=== PATIENT | female | born 1930 | race American Indian/Alaskan Native ===

== ENCOUNTER 2016-06-02 12:59 | Outpatient (CLI) | payer MEDICARE ==
[2016-06-02 13:29] LABS: Bilirubin,Urine NEG (Negative); Blood,Urine NEG (Negative); Ketones,Urine NEG (Negative); Leukocyte Esterase,Urine MOD (Negative); Mucus,Urine FEW /HPF; Nitrite,Urine NEG (Negative); Protein,Urine <15 mg/dL mg/dL (Negative); Urobilinogen,Urine < 2.0 mg/dL (<2.0)
[2016-06-02 13:55] LABS: BUN/Creatinine Ratio 17.27; Calcium 9.3 mg/dL (8.4-10.2); Chloride 102.2 mmol/L (98-107); Phosphorous 3.1 mg/dL (2.5-4.5); Potassium 4.3 mmol/L (3.6-5.0)
[2016-06-02 14:34] LABS: Eosinophils % (Auto) 3.4 % (0.0-4.3); Hematocrit 34.8 % (30.3-42.9); Hemoglobin 11.4 gm/dl (10.1-14.3); Mean Corpuscular HGB Conc 33 % (30-34); Mean Corpuscular Hemoglobin 29 pg (28-32); Mean Corpuscular Volume 88 fl (79-97); Platelet Count 168 K/mm3 (140-440); Red Blood Count 3.97 M/mm3 (3.65-5.03); White Blood Count 4.6 K/mm3 (4.5-11.0)
== END 2016-06-02 13:00 | disposition home or self-care (01) ==
LOC: LAB 12:59
PROVIDERS: ATTEND Internal Medicine Nephrology
DX: I12.9 Hypertensive chronic kidney disease with stage 1 through stage 4 chronic kidney disease, or unspecified chronic kidney disease (principal); N18.3 Chronic kidney disease, stage 3 (moderate)
CPT/HCPCS: 36415; 80048; 81001; 82570; 84100; 84156; 85025

== ENCOUNTER 2016-07-03 14:18 | Outpatient (CLI) | payer MEDICARE ==
--- NOTE | 2016-07-03 16:11 | Mammography Report ---
BILATERAL DIGITAL SCREENING MAMMOGRAM with CAD: 07/03/16 14:18:00 CLINICAL: Routine screening. COMPARISON: 05/13/14 FINDINGS: There are bilateral scattered areas of fibroglandular density.No mass, architectural distortion or suspicious calcifications. IMPRESSION: No mammographic evidence of malignancy. BI-RADS CATEGORY: 1 -- Negative RECOMMENDATION: Routine mammographic screening in one year. COMMENT: Patient follow-up letters are generated by our [employer] application.
== END 2016-07-03 14:19 | disposition home or self-care (01) ==
LOC: MAMMO 14:18
PROVIDERS: ATTEND Internal Medicine
DX: Z12.31 Encounter for screening mammogram for malignant neoplasm of breast (principal)
CPT/HCPCS: 77067; G0202

== ENCOUNTER 2017-02-12 12:33 | Emergency (ER) | payer MEDICARE ==
[2017-02-12 13:02] VITALS: BP 140/52
== END 2017-02-13 23:29 | disposition left against medical advice (07) ==
LOC: ED 12:33
DX: M79.671 Pain in right foot (principal); Z53.21 Procedure and treatment not carried out due to patient leaving prior to being seen by health care provider

== ENCOUNTER 2017-05-08 10:47 | Outpatient (CLI) | payer MEDICARE ==
[2017-05-08 11:18] LABS: Basophils % (Auto) 0.8 % (0.0-1.8); Eosinophils % (Auto) 2.3 % (0.0-4.3); Hematocrit 34.3 % (30.3-42.9); Hemoglobin 11.2 gm/dl (10.1-14.3); Mean Corpuscular HGB Conc 33 % (30-34); Mean Corpuscular Hemoglobin 29 pg (28-32); Mean Corpuscular Volume 90 fl (79-97); Platelet Count 121 K/mm3 (140-440); Red Blood Count 3.81 M/mm3 (3.65-5.03); Red Cell Distribution Width 15.1 % (13.2-15.2); White Blood Count 2.7 K/mm3 (4.5-11.0)
[2017-05-08 11:43] LABS: Calcium 9.6 mg/dL (8.4-10.2); Chloride 107.9 mmol/L (98-107); Potassium 4.1 mmol/L (3.6-5.0); Uric Acid 5.7 mg/dL (3.5-7.6)
[2017-05-08 11:51] LABS: Bacteria,Urine 1+ /HPF (Negative); Bilirubin,Urine NEG (Negative); Blood,Urine NEG (Negative); Ketones,Urine NEG (Negative); Leukocyte Esterase,Urine MOD (Negative); Mucus,Urine FEW /HPF; Nitrite,Urine NEG (Negative); Protein,Urine <15 mg/dL mg/dL (Negative)
== END 2017-05-08 10:48 | disposition home or self-care (01) ==
LOC: LAB 10:47
PROVIDERS: ATTEND Internal Medicine Nephrology
DX: I12.9 Hypertensive chronic kidney disease with stage 1 through stage 4 chronic kidney disease, or unspecified chronic kidney disease (principal); N18.3 Chronic kidney disease, stage 3 (moderate); D63.1 Anemia in chronic kidney disease; E78.5 Hyperlipidemia, unspecified; K21.9 Gastro-esophageal reflux disease without esophagitis; E79.0 Hyperuricemia without signs of inflammatory arthritis and tophaceous disease; R82.90 Unspecified abnormal findings in urine
CPT/HCPCS: 36415; 80048; 81001; 82570; 84156; 84550; 85025

== ENCOUNTER 2017-10-17 16:11 | Outpatient (CLI) | payer MEDICARE ==
--- NOTE | 2017-10-17 19:14 | XRay Report ---
FINAL REPORT EXAM: XR KNEE 1-2V RT HISTORY: PAIN IN RIGHT KNEE TECHNIQUE: AP and lateral views of the right knee PRIORS: None. FINDINGS: Intramedullary errol and screws present in the distal femur through a remote posttraumatic deformity involving the distal femoral shaft. No acute fracture or dislocation is seen. The soft tissues are unremarkable with no evidence for suprapatellar joint effusion. The bony mineralization is osteopenic. There is narrowing of the lateral and patellofemoral joints. 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 IMPRESSION: 1. no acute abnormality of the right knee. Postsurgical findings related to remote trauma in the distal femoral shaft. 2. Lateral patellofemoral joint space narrowing 3. 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
== END 2017-10-17 16:12 | disposition home or self-care (01) ==
LOC: XRAY 16:11
PROVIDERS: ATTEND Orthopaedic Surgery
DX: M11.261 Other chondrocalcinosis, right knee (principal); I12.9 Hypertensive chronic kidney disease with stage 1 through stage 4 chronic kidney disease, or unspecified chronic kidney disease; N18.9 Chronic kidney disease, unspecified; M81.0 Age-related osteoporosis without current pathological fracture; Z96.7 Presence of other bone and tendon implants; D64.9 Anemia, unspecified

== ENCOUNTER 2017-11-09 13:34 | Outpatient (CLI) | payer MEDICARE ==
[2017-11-09 14:00] LABS: Bilirubin,Urine NEG (Negative); Color,Urine Yellow (Yellow)
[2017-11-09 14:00] LABS: Basophils % (Auto) 0.7 % (0.0-1.8); Eosinophils # (Auto) 0.1 K/mm3 (0.0-0.4); Hematocrit 33.9 % (30.3-42.9); Lymphocytes # (Auto) 0.8 K/mm3 (1.2-5.4); Lymphocytes % (Auto) 22.7 % (13.4-35.0); Mean Corpuscular HGB Conc 33 % (30-34); Mean Corpuscular Hemoglobin 29 pg (28-32); Mean Corpuscular Volume 89 fl (79-97); Monocytes # (Auto) 0.3 K/mm3 (0.0-0.8); Monocytes % (Auto) 8.6 % (0.0-7.3); Platelet Count 132 K/mm3 (140-440); Red Blood Count 3.81 M/mm3 (3.65-5.03); Red Cell Distribution Width 14.6 % (13.2-15.2)
[2017-11-09 14:01] LABS: Blood,Urine SM (Negative); Mucus,Urine FEW /HPF; Protein,Urine <15 mg/dL mg/dL (Negative); Urobilinogen,Urine < 2.0 mg/dL (<2.0)
[2017-11-09 14:11] LABS: BUN/Creatinine Ratio 17; Blood Urea Nitrogen 17 mg/dL (7-17); Calcium 9.9 mg/dL (8.4-10.2); Hemolysis Index 46; Uric Acid 4.9 mg/dL (3.5-7.6)
[2017-11-09 14:24] LABS: Creatinine,Urine 56.3 mg/dL (0.1-20.0); Protein/Creatinine Ratio,Urine 0.23
== END 2017-11-09 13:35 | disposition home or self-care (01) ==
LOC: LAB 13:34
PROVIDERS: ATTEND Internal Medicine Nephrology
DX: I12.9 Hypertensive chronic kidney disease with stage 1 through stage 4 chronic kidney disease, or unspecified chronic kidney disease (principal); E11.22 Type 2 diabetes mellitus with diabetic chronic kidney disease; N18.3 Chronic kidney disease, stage 3 (moderate); E78.5 Hyperlipidemia, unspecified; D63.1 Anemia in chronic kidney disease; N25.81 Secondary hyperparathyroidism of renal origin; K21.9 Gastro-esophageal reflux disease without esophagitis; M10.9 Gout, unspecified; M81.0 Age-related osteoporosis without current pathological fracture; E78.00 Pure hypercholesterolemia, unspecified; Z90.710 Acquired absence of both cervix and uterus
CPT/HCPCS: 36415; 80048; 81001; 82570; 84100; 84156; 84550; 85025

== ENCOUNTER 2019-02-18 12:08 | Outpatient (CLI) | payer MEDICARE ==
[2019-02-18 12:45] LABS: Hematocrit 36.7 % (30.3-42.9); Mean Corpuscular HGB Conc 33 % (30-34); Mean Corpuscular Volume 91 fl (79-97); Platelet Count 133 K/mm3 (140-440); Red Blood Count 4.05 M/mm3 (3.65-5.03); Red Cell Distribution Width 15.6 % (13.2-15.2)
[2019-02-18 12:51] LABS: Bacteria,Urine 1+ /HPF (Negative); Bilirubin,Urine NEG (Negative); Blood,Urine NEG (Negative); Color,Urine Yellow (Yellow); Mucus,Urine FEW /HPF; Protein,Urine <15 mg/dL mg/dL (Negative); Urobilinogen,Urine < 2.0 mg/dL (<2.0)
[2019-02-18 13:02] LABS: Creatinine,Urine 81.7 mg/dL (0.1-20.0); Protein/Creatinine Ratio,Urine 0.21
[2019-02-18 13:06] LABS: Calcium 9.6 mg/dL (8.4-10.2)
== END 2019-02-18 12:09 | disposition home or self-care (01) ==
LOC: LAB 12:08
PROVIDERS: ATTEND Internal Medicine Nephrology
DX: I12.9 Hypertensive chronic kidney disease with stage 1 through stage 4 chronic kidney disease, or unspecified chronic kidney disease (principal); N18.3 Chronic kidney disease, stage 3 (moderate); E78.00 Pure hypercholesterolemia, unspecified; M81.0 Age-related osteoporosis without current pathological fracture; Z86.2 Personal history of diseases of the blood and blood-forming organs and certain disorders involving the immune mechanism; Z90.710 Acquired absence of both cervix and uterus
CPT/HCPCS: 36415; 80048; 81001; 82570; 84156; 85027

== ENCOUNTER 2019-03-11 09:33 | Outpatient (CLI) | payer MEDICARE ==
--- NOTE | 2019-03-11 12:08 | Magnetic Resonance Report ---
MRI LUMBAR SPINE 03/11/2019 INDICATION / CLINICAL INFORMATION: M54.16) RIGHT LUMBAR RADICULITIS. COMPARISON: 07/15/2010 FINDINGS: GENERAL OBSERVATIONS: Unenhanced MR images of the lumbar spine were obtained. Degenerative disc and f acet changes are present at all levels, also slightly progressed when compared to the prior exam from 2010. [id number] ANALYSIS: L5-S1: There is a grade 1 anterolisthesis associated with prominent bilateral facet degenerative drummond ges, more pronounced on the right than on the left. There is some narrowing of the right lateral rece ss and neural foramen present as result. Central canal diameters preserved. L4-5: Moderate diffuse disc bulging and prominent bilateral facet degenerative changes are present, r esulting in moderately severe stenosis of the central canal. Bilateral foraminal encroachment is pres ent, more pronounced on the left than on the right. L3-4: Moderate diffuse disc bulging and facet degenerative changes are present. Moderate central cortney l narrowing is noted. There is some narrowing of the neural foramina bilaterally. Soft tissue planes around the exiting nerve roots are preserved. L2-3: Moderate diffuse disc bulging and central canal narrowing is present. L1-2: Mild diffuse disc bulging and facet degenerative changes. BONE MARROW: Degenerative changes present at all levels. Lower endplate invagination is present at L4 . Incidental note is made of a prominent hemangioma in the T12 vertebral body. SPINAL CORD/CAUDA EQUINA: Unremarkable. PARASPINAL SOFT TISSUES: No significant abnormality. Numerous small renal cysts are noted incidentally. There is significant atrophy of the left paraspin al musculature in the upper lumbar region. IMPRESSION: Signer Name: Prince Merino MD Signed: 03/11/2019 12:03 PM Workstation Name: [facility] [employer] [id number]
== END 2019-03-11 09:34 | disposition home or self-care (01) ==
LOC: MRI 09:33
PROVIDERS: ATTEND Physical Medicine & Rehabilitation
DX: M54.16 Radiculopathy, lumbar region (principal); I12.9 Hypertensive chronic kidney disease with stage 1 through stage 4 chronic kidney disease, or unspecified chronic kidney disease; N18.9 Chronic kidney disease, unspecified; Z88.8 Allergy status to other drugs, medicaments and biological substances
CPT/HCPCS: 72148